=== PATIENT | female | born 1960 | race Two or more races ===

== ENCOUNTER 2019-06-05 12:25 | Outpatient (CLI) | payer MEDICAID ==
[2019-06-05] MEDS ORDERED: BP med (15:53)
--- NOTE | 2019-06-05 19:15 | Consultation ---
DATE OF CONSULTATION: 06/05/2019 CONSULTING PHYSICIAN: Jono Lemus M.D. CHIEF COMPLAINT: Screening colonoscopy. HISTORY OF PRESENT ILLNESS: The patient is a very pleasant 59-year-old female without any significant past medical history except for mild hypertension, referred to us for screening colonoscopy. PAST MEDICAL HISTORY: Hypertension. PAST SURGICAL HISTORY: None. MEDICATIONS: Blood pressure medication. FAMILY HISTORY: No family history of GI malignancies. SOCIAL HISTORY: The patient denies any tobacco, alcohol, or drug abuse. ALLERGIES: No known allergies. REVIEW OF SYSTEMS: A 10-point review of systems was performed and pertinent positives in HPI. PHYSICAL EXAMINATION: GENERAL: This is a well-developed female, in no acute distress. HEENT: Normocephalic and atraumatic. Sclerae anicteric. NECK: Supple. No evidence of lymphadenopathy. CARDIOVASCULAR: Regular rate and rhythm. Plus S1 and S2. No obvious murmur. LUNGS: Decreased breath sounds bilaterally based on the supine. ABDOMEN: Soft and nontender. No rebound. No guarding. No peritoneal sign. EXTREMITIES: No cyanosis. No clubbing. No edema. ASSESSMENT AND PLAN: This is a 59-year-old female, referred for us for screening colonoscopy. The patient was given instruction for colonoscopy procedure and risks and benefits were explained to the patient. The patient was given the prep. She agreed to obtain authorization and as soon as the authorization was obtained, we are going to go ahead and schedule her. Jono Lemus M.D. DR: JACKIE JOB#: [id number] CC:
== END 2019-06-05 14:25 | disposition home or self-care (01) ==
LOC: PAN 12:25
DX: Z01.818 Encounter for other preprocedural examination (principal); I10 Essential (primary) hypertension